=== PATIENT | female | born 1945 | race Caucasian/White ===

== ENCOUNTER 2023-08-11 06:22 | Emergency (ER) | payer MEDICARE, OTHER ==
[~2023-08-11] VITALS: Ht 165.1 cm; Wt 100.0 kg
[2023-08-11 06:28] VITALS: TEMP 97.3
[2023-08-11] MEDS ORDERED: LIDOcaine 1% W/epiNEPHrine 1:100,000 20ml vial IJ ONE (06:55)
--- NOTE | 2023-08-11 06:56 | NUR ---
pt fell and hit the back of her head approx 5 am rachid cash processor cleaned wound sterile water irrigated prior to provider eval. Provided pt with wet wash cloth for blood on her face pt alert and orientated slight swelling at wound. Son is at bedside. Bleeding currently stopped
[2023-08-11] MEDS ORDERED: mupirocin 2% ointment 22GM TP STA (07:13)
--- NOTE | 2023-08-11 07:20 | NUR ---
pt taken to CT
[2023-08-11] MEDS ORDERED: TETanus/Pertussis (Acell)/Diphther VAC/PF (Tdap-Adult) 0.5ml syringe IMVAC ONE (08:15)
[2023-08-11 08:42] VITALS: BP 148/70; PULSE 88; RESP 16; O2SAT 95
== END 2023-08-11 08:46 | disposition home or self-care (01) ==
LOC: ER 06:22
DX: S00.01XA Abrasion of scalp, initial encounter (principal); S09.90XA Unspecified injury of head, initial encounter; W19.XXXA Unspecified fall, initial encounter; Y93.89 Activity, other specified; Y92.89 Other specified places as the place of occurrence of the external cause; Y99.8 Other external cause status
CPT/HCPCS: 70450; 90471; 90715; 99285